=== PATIENT | female | born 1975 | race Caucasian/White ===

== ENCOUNTER → 2017-01-07 | Outpatient (CLI) | payer BC ==
--- NOTE | 2017-01-11 07:04 | RADIOLOGY REPORT PS360 ---
DIG MAMM-SCREEN JULIANA W/CAD CAD Screening ORDERING PHYSICIAN : Neo Spears MD PATIENT AGE: 41 years GENDER: Female COMPARISON: Previous mammograms: June & December 2014 & June 2015 bilateral mammogram. Also June 2015 diagnostic spot images INDICATION: Routine screening taking control pills. No new complaints Family history: mother with breast cancer age 62 TECHNIQUE: Standard CC and MLO images were obtained. R2 CAD reviewed. Additional actually cc view both breast included FINDINGS: Moderately dense inhomogeneous with is scattered inhomogeneous fibroglandular elements both breast. Mild asymmetry RIGHT BREAST: Moderately dense breast with stable areas of mild asymmetry.. Follow-up in one year LEFT BREAST: Question subtle area of density at the deep central right breast on cc view dissipates on the axillary cc view and appears stable since prior cc studies. No significant new findings but would encourage ongoing follow-up in one year. IMPRESSION: .. Stable mammogram with no significant interval change However recommend and would encourage bilateral follow-up in one year for ongoing evaluation in this moderately dense inhomogeneous breast Self breast examination be encouraged with ultrasound if any palpable areas that may arise BI-RADS CATEGORY: 2_Benign RECOMMENDED FOLLOWUP: 12M 12 MONTH FOLLOW-UP (A letter has been sent to the patient regarding results of the study.)
== END ==
LOC: RAD 16:11
DX: Z12.31 Encounter for screening mammogram for malignant neoplasm of breast (principal)
CPT/HCPCS: G0202